=== PATIENT | female | born 1945 | race Caucasian/White ===

== ENCOUNTER 2024-06-25 12:41 | Emergency (ER) | payer MEDICARE ==
[~2024-06-25] VITALS: Ht 162.5 cm; Wt 60.8 kg
[~2024-06-25 12:41] MED LIST: VICODIN 500 MG-1 TAB PO
[2024-06-25 12:42] VITALS: BP 128/69
[2024-06-25 13:39] LABS: BASO # 0.1 10*3/uL (0.0-0.1); EOS # 0.1 10*3/uL (0.0-0.4); EOS % 2.3 % (1.0-4.0); HEMATOCRIT 36.8 % (37.0-47.0); MEAN CELL VOLUME 93.9 fl (81.0-99.0); MEAN CORPUSCULAR HGB 30.6 pg (27.0-31.0); MEAN CORPUSCULAR HGB CONC 32.6 g/dl (33.0-37.0); MEAN PLATELET VOLUME 10.9 fl (9.6-12.3); MONO # 0.5 10*3/uL (0.1-1.0); MONO % 8.6 % (3.0-9.0); NEUT # 4.2 10*3/uL (2.3-7.9); NEUT % 69.7 % (47.0-73.0); PLATELET COUNT AUTOMATED 228 10*3/uL (130-400); RED BLOOD COUNT 3.92 10*6/uL (4.10-5.10); RED CELL DISTRI WIDTH 14.4 % (0-14.5); WHITE BLOOD COUNT 6.1 10*3/uL (4.8-10.8)
[2024-06-25 13:59] LABS: POTASSIUM 3.5 mmol/L (3.4-5.1)
== END 2024-06-25 15:28 | disposition home or self-care (01) ==
LOC: ED 12:41
PROVIDERS: Emergency Medicine
DX: R55 Syncope and collapse (principal); E86.0 Dehydration